=== PATIENT | male | born 1970 | race Caucasian/White ===

== ENCOUNTER 2016-12-12 16:24 | Emergency (ER) | payer MEDICAID | END 2016-12-12 19:00 | disposition home or self-care (01) | LOC: D.ER 16:24 | DX: S80.01XA Contusion of right knee, initial encounter (principal); W01.0XXA Fall on same level from slipping, tripping and stumbling without subsequent striking against object, initial encounter; Y93.89 Activity, other specified; Y92.019 Unspecified place in single-family (private) house as the place of occurrence of the external cause; F17.200 Nicotine dependence, unspecified, uncomplicated ==

== ENCOUNTER → 2018-05-18 13:23 | Outpatient (CLI) | payer MEDICARE, MEDICAID | END | disposition home or self-care (01) | LOC: D.LABREF 13:23 | DX: D12.3 Benign neoplasm of transverse colon (principal); K64.0 First degree hemorrhoids; R63.4 Abnormal weight loss; R11.10 Vomiting, unspecified; R14.2 Eructation ==

== ENCOUNTER 2018-07-02 23:08 | Emergency (ER) | payer MEDICARE, MEDICAID ==
[~2018-07-02] VITALS: Ht 165.1 cm; Wt 68.2 kg
[2018-07-02 23:17] VITALS: Ht 165.1 cm; Wt 68.2 kg
[2018-07-02] MEDS ORDERED: SYNTHROID25 MCG (23:22)
[2018-07-02] MEDS ORDERED: HYSINGLA ER20 MG PO (23:22)
[2018-07-02] MEDS ORDERED: LIPITOR20 MG (23:22)
[2018-07-02] MEDS ORDERED: OXYCODONE-APAP1 T10 PO (23:22)
[2018-07-02] MEDS ORDERED: AXIRON30 MG/1.5 (23:23)
[2018-07-03 00:23] LABS: BASOPHILS 0.4 % (0-2); EOSINOPHILS 4.5 % (0-7); HEMATOCRIT 34.3 % (42.0-54.0); HEMOGLOBIN 11.5 g/dL (13.5-17.5); LYMPHOCYTES 29.3 % (15-50); MCH 29.3 pg (26.0-34.0); MCHC 33.5 g/dL (31.0-37.0); MCV 87.5 fL (80.0-100.0); MEAN PLATELET VOLUME 9.9 fL (7.4-10.4); NEUTROPHILS 57.8 % (40-80); PLATELET COUNT 173 10x3/uL (130-400); RBC 3.92 10x6/uL (4.20-6.10); RDW 13.1 % (11.5-14.5); WBC 5.2 10x3/uL (4.8-10.8)
[2018-07-03 00:29] LABS: APTT 34.8 SECONDS (22.8-39.4); INR 1.14 (0.85-1.17); PROTIME 14.1 SECONDS (11.6-15.0)
[2018-07-03 00:33] LABS: ALBUMIN 3.1 g/dL (3.4-5.0); ALKALINE PHOSPHATASE 80 U/L (46-116); ALT (SGPT) 21 U/L (10-68); BILIRUBIN - TOTAL 0.31 mg/dL (0.2-1.3); CALC OSMOLALITY 272 mosm/kg (275-300); CALCIUM 7.4 mg/dL (8.5-10.1); CARBON DIOXIDE 25.1 mmol/L (21.0-32.0); CHLORIDE - SERUM 104 mmol/L (98-107); GLUCOSE 88 mg/dL (74-106); POTASSIUM - SERUM 3.6 mmol/L (3.5-5.1); PROTEIN - SERUM 6.9 g/dL (6.4-8.2); SODIUM 138 mmol/L (136-145); UREA NITROGEN 7 mg/dL (7-18); eGFR NON AFRICAN AMERICAN 85 mL/min (90-120)
[2018-07-03] MEDS ORDERED: CYCLOBENZAPRINE10 MG PO (01:01)
[2018-07-03] MEDS ORDERED: IBUPROFEN800 MG PO (01:01)
[2018-07-03 01:22] VITALS: BP 119/78
== END 2018-07-03 01:22 | disposition home or self-care (01) ==
LOC: D.ER 23:08
PROVIDERS: Family Medicine
DX: R45.4 Irritability and anger (principal); S00.03XA Contusion of scalp, initial encounter; V49.9XXA Car occupant (driver) (passenger) injured in unspecified traffic accident, initial encounter; Y93.89 Activity, other specified; Y92.410 Unspecified street and highway as the place of occurrence of the external cause; R45.5 Hostility; M79.18 Myalgia, other site; S00.01XA Abrasion of scalp, initial encounter

== ENCOUNTER 2019-03-09 14:23 | Emergency (ER) | payer MEDICARE, MEDICAID ==
[~2019-03-09] VITALS: Ht 165.1 cm; Wt 63.6 kg
[~2019-03-09 14:23] MED LIST: AXIRON30 MG/1.5; CYCLOBENZAPRINE10 MG PO; HYSINGLA ER20 MG PO; IBUPROFEN800 MG PO; LIPITOR20 MG; OXYCODONE-APAP1 T10 PO; SYNTHROID25 MCG
[2019-03-09 14:26] VITALS: Ht 165.1 cm; Wt 63.6 kg
[2019-03-09] MEDS ORDERED: PERCOCET 7.5/321 TAB PO (14:29)
[2019-03-09] MEDS ORDERED: HYSINGLA ER30 MG PO (14:30)
[2019-03-09] MEDS ORDERED: OMEPRAZOLE20 M1 PO (14:31)
[2019-03-09 17:17] VITALS: BP 175/95
== END 2019-03-09 17:20 | disposition home or self-care (01) ==
LOC: D.ER 14:23
DX: S16.1XXA Strain of muscle, fascia and tendon at neck level, initial encounter (principal); W22.8XXA Striking against or struck by other objects, initial encounter; Y93.89 Activity, other specified; Y92.89 Other specified places as the place of occurrence of the external cause; M54.12 Radiculopathy, cervical region

== ENCOUNTER 2020-02-19 10:44 | Emergency (ER) | payer MEDICARE, MEDICAID ==
[~2020-02-19 10:44] MED LIST changes: +HYSINGLA ER30 MG PO; +OMEPRAZOLE20 M1 PO; +PERCOCET 7.5/321 TAB PO
[2020-02-19 10:47] VITALS: BP 141/87; Ht 165.1 cm
== END 2020-02-19 11:25 | disposition left against medical advice (07) ==
LOC: D.ER 10:44
DX: M25.562 Pain in left knee (principal); K21.9 Gastro-esophageal reflux disease without esophagitis; Z53.29 Procedure and treatment not carried out because of patient's decision for other reasons; W19.XXXA Unspecified fall, initial encounter; Y93.9 Activity, unspecified; Y92.9 Unspecified place or not applicable

== ENCOUNTER 2020-03-20 09:24 | Emergency (ER) | payer MEDICARE, MEDICAID ==
[~2020-03-20] VITALS: Ht 165.1 cm; Wt 65.9 kg
[2020-03-20 09:48] VITALS: BP 139/89; Ht 165.1 cm; Wt 65.9 kg
== END 2020-03-20 10:20 | disposition home or self-care (01) ==
LOC: D.ER 09:24
DX: M25.552 Pain in left hip (principal); K21.9 Gastro-esophageal reflux disease without esophagitis

== ENCOUNTER 2020-03-22 23:46 | Emergency (ER) | payer MEDICARE, MEDICAID ==
[~2020-03-22] VITALS: Ht 165.1 cm; Wt 68.2 kg
[2020-03-23 00:12] VITALS: BP 101/67; Ht 165.1 cm; Wt 68.2 kg
== END 2020-03-23 00:58 | disposition home or self-care (01) ==
LOC: D.ER 23:46
DX: M25.552 Pain in left hip (principal); Z96.642 Presence of left artificial hip joint; R41.82 Altered mental status, unspecified; K21.9 Gastro-esophageal reflux disease without esophagitis